=== PATIENT | female | born 1945 | race Caucasian/White ===

== ENCOUNTER 2017-10-14 15:23 | Outpatient (CLI) | payer MEDICARE, OTHER ==
--- NOTE | 2017-10-15 09:10 | MRI ---
MRI OF THE RIGHT SHOULDER WITHOUT CONTRAST: Indication: Right shoulder pain. Comparison: Right shoulder radiograph, 07-08-17. FINDINGS: There is full thickness, full width tear of the supraspinatus with retraction of the tendon to the le rachel of the superior humeral head. There is full thickness disruption of the biceps tendon with retraction to the level of the mid bicip ital groove. There are small focal areas of fullness articular cartilage thinning involving the posterior central glenoid with associated subchondral cyst-like abnormalities. There is moderate AC joint osteoarthrosis. There is a small benign appearing vascular malformation seen within the medial proximal humeral metap hysis measuring 1.2 cm. IMPRESSION: 1. Full thickness, full width tear of the supraspinatus with retraction to the level of the superior humeral head. 2. Complete long head of the biceps tendon disruption with retraction to the level of the mid bicipit al groove. 3. Moderate to severe chondrosis of the posterior central glenoid arterial surface. 4. Moderate AC joint osteoarthrosis. 5. Small benign appearing vascular malformation of the proximal humeral metaphysis without significan t bone remodeling or bone destruction. POS: [facility]
== END 2017-10-14 15:24 | disposition home or self-care (01) ==
LOC: MRI 15:23
PROVIDERS: ATTEND Orthopaedic Surgery
DX: M25.511 Pain in right shoulder (principal); M75.101 Unspecified rotator cuff tear or rupture of right shoulder, not specified as traumatic; M19.011 Primary osteoarthritis, right shoulder; M75.91 Shoulder lesion, unspecified, right shoulder

== ENCOUNTER 2018-06-05 12:08 | Outpatient (CLI) | payer MEDICARE, OTHER ==
--- NOTE | 2018-06-05 14:42 | BD ---
DEXA BONE MINERAL DENSITY STUDY: HISTORY: Osteoporosis screening. Postmenopausal female. COMPARISON: None. FINDINGS: Exam: DEXA Bone Density Lumbar Spine: BMD (g/cm2) L1 1.320 T-Score: 3.0 5.1 L2 1.166 T-Score: 1.3 2.6 L3 1.245 T-Score: 1.5 3.9 L4 1.054 T-Score: -0.1 2.5 L1-L4 1.210 T-Score: 1.5 3.8 WHO classification is normal. Femoral Neck: 0.803 T-Score: -0.4 -1.6 Total Femur: 0.806 T-Score: -1.1 0.6 WHO classification osteopenia. 10-YEAR FRACTURE RISK: Major osteoporotic fracture is 7.5%. Hip fracture 0.9. Impression: 1. Osteopenia left hip. 2. Spuriously elevated bone mineral density of the lumbar spine due to degenerative changes. POS: SUSIE
== END 2018-06-05 12:09 | disposition home or self-care (01) ==
LOC: BICMAMMO 12:08
PROVIDERS: ATTEND Internal Medicine
DX: Z13.820 Encounter for screening for osteoporosis (principal); M85.852 Other specified disorders of bone density and structure, left thigh; Z78.0 Asymptomatic menopausal state; Z12.31 Encounter for screening mammogram for malignant neoplasm of breast
CPT/HCPCS: 77063; 77067; 77080

== ENCOUNTER 2018-07-16 13:45 | Outpatient (CLI) | payer MEDICARE, OTHER ==
--- NOTE | 2018-07-16 16:36 | RAD ---
LUMBAR SPINE FOUR VIEWS: 07/16/18 HISTORY: Lumbar spondylosis. Back pain. FINDINGS: Multilevel degenerative changes seen with dextroscoliosis of the lumbar spine. No fracture, subluxati on or bony destruction seen. No change in alignment is noted on flexion or extension. IMPRESSION: Lumbar spondylosis and dextroscoliosis. POS: SUSIE
== END 2018-07-16 13:46 | disposition home or self-care (01) ==
LOC: BICMAMMO 13:45
PROVIDERS: ATTEND Internal Medicine
DX: M47.816 Spondylosis without myelopathy or radiculopathy, lumbar region (principal); R92.2 Inconclusive mammogram; M41.9 Scoliosis, unspecified
CPT/HCPCS: 72110; 77065; G0279

== ENCOUNTER 2018-08-13 13:37 | Outpatient (CLI) | payer MEDICARE, OTHER ==
--- NOTE | 2018-08-13 14:53 | MRI ---
MRI LUMBAR SPINE WITHOUT CONTRAST: Date: 08/13/18 COMPARISON: None. CORRELATION: Lumbar spine radiograph series dated 07/16/18. HISTORY: Lumbar spondylosis. Low back pain with radiation down both legs. TECHNIQUE: MRI lumbar spine is performed without intravenous Gadolinium administration. Multisequential, multipl ramesh imaging is performed. FINDINGS: There is marked dextrorotoscoliosis of the lumbar spine. There is appropriate T1 marrow signal intens ity of the majority of the lumbar vertebra. There is irregularity involving the inferior aspect of T1 2 and the superior aspect of L1. There is associated T1 marrow signal hypointensity, T2 and STIR subt le hyperintensity. Findings may represent subacute end plate injuries given what appears to be cirrho sis along the margin of the marrow signal abnormality. Correlate clinically. There is no significant collapse or loss of vertebral body height. The remainder of the lumbar vertebra have appropriate chuck ow signal intensity. Conus medullaris terminates at mid L1 level. There is appropriate signal intensity in the visualized solid organs. Symmetric signal intensity of t he psoas muscles. There is a large T2 hyperintensity in the right S2 neural foramen. The possibility of a large Tarlov cyst is raised, measuring 2.3 x 2.9 cm. T12-L1: Severe loss of disc space height. No high grade central canal stenosis. Moderate bilateral f oraminal narrowing. L1-L2: Moderate loss of disc space height. No significant central canal stenosis. Moderate bilateral neural foraminal narrowing. L2-L3: Moderate loss of disc space height. Generalized disc bulge, ligamentum flavum thickening, and facet hypertrophy result in mild central canal stenosis. Moderate bilateral foraminal narrowing. L3-L4: Desiccation with moderate loss of disc space height. Generalized disc bulge, ligamentum flavu m thickening, and facet hypertrophy result in mild central canal stenosis. Moderate to severe bilater al foraminal narrowing. L4-L5: Severe loss of disc space height. Generalized disc bulge, ligamentum flavum thickening, and f acet hypertrophy result in mild central canal stenosis. Moderate right and mild to moderate left fora donna narrowing. L5-S1: Severe loss of disc space height. Generalized disc bulge, ligamentum flavum thickening, and f acet hypertrophy do not result in any significant central canal stenosis. Moderate to severe right an d mild to moderate left foraminal narrowing. IMPRESSION: 1. Dextrorotatory scoliosis lumbar spine. There is associated multilevel significant neural foramina l narrowing as described above. 2. There is severe loss of disc space height throughout the lumbar spine. Nevertheless, there is no evidence of high grade central canal stenosis. POS: SUSIE
--- NOTE | 2018-08-13 15:39 | MRI ---
MR CERVICAL SPINE WITHOUT CONTRAST: 08/13/18 INDICATION: Cervical spondylosis. COMPARISON: None. FINDINGS: There is suspected ankylosis at C3-4 and C5-6. There is anterior translation of C3 on C4. The visuali zed posterior fossa is unremarkable appearing. Craniocervical junction appears within normal limits. At C2-C3, there is no appreciable central canal or neural foraminal narrowing. There is moderate to severe right and moderate left facet joint degen erative change. At C3-4, there is uncovertebral hypertrophy and facet joint degenerative change inducing mild right n eural foraminal narrowing. The anterolisthesis of C3 on C4 in addition to a mild broad based bulge in duces mild central canal narrowing without definite cord compression. At C4-5, there is a broad based bulge inducing mild effacement of the spinal cord without cord signal abnormality. There is severe left and moderate right facet joint degenerative change. There is no ap preciable neural foraminal narrowing. At C5-6, there is a broad based disc osteophyte complex effacing the ventral aspect of the spinal cor d with mild cord compression. There is no definite cord signal abnormality. There is no neural forami nal narrowing present. At C6-7, there is disc osteophyte complex causing mild ventral effacement of the spinal cord. There i s uncovertebral hypertrophy and facet joint degenerative change inducing moderate to severe left and mild right neural foraminal narrowing. At C7-T1, there is no appreciable central canal or neural foraminal narrowing. IMPRESSION: 1. Cord effacement seen at C4-5, C5-6 an d C6-7 without cord signal abnormality. 2. Moderate to severe left neural foraminal narrowing at C6-7. 3. Ankylosis at C3-4 and C5-6. 4. Anterolisthesis of C3-4 causes mild central canal narrowing without definite cord compression . POS: T[facility]
== END 2018-08-13 13:38 | disposition home or self-care (01) ==
LOC: BICMRI 13:37
PROVIDERS: ATTEND Anesthesiology Pain Medicine
DX: M47.816 Spondylosis without myelopathy or radiculopathy, lumbar region (principal); M47.812 Spondylosis without myelopathy or radiculopathy, cervical region; M43.22 Fusion of spine, cervical region; M43.12 Spondylolisthesis, cervical region; M48.02 Spinal stenosis, cervical region; M41.9 Scoliosis, unspecified; M48.061 Spinal stenosis, lumbar region without neurogenic claudication; M48.05 Spinal stenosis, thoracolumbar region; M48.07 Spinal stenosis, lumbosacral region
CPT/HCPCS: 72141; 72148

== ENCOUNTER 2019-07-30 15:21 | Observation (INO) | payer MEDICARE, OTHER ==
[2019-07-30] MEDS ORDERED: Iopamidol-370 76% 500 ML 1 ML ONE (15:43)
[2019-07-30 16:06] LABS: #Basophils 0.1 thou/uL (0.0-0.2); #Lymphocytes 0.9 thou/uL (1.20-3.40); #Monocytes 0.3 thou/uL (0.11-0.59); #Neutrophils 8.2 thou/uL (1.40-6.50); %Basophils 0.5 % (0.0-1.0); %Lymphocytes 9.2 % (21.0-51.0); %Monocytes 3.6 % (0.0-10.0); %Neutrophils 86.6 % (42.0-75.0); Hemoglobin 8.7 g/dL (12.0-16.0); Mean Corpuscular HGB CONC 34.5 g/dL (32.0-36.0); Mean Corpuscular Hemoglobin 33.4 pg (27.0-31.0); Mean Platelet Volume 8.5 fL (7.4-10.4); Platelet Count 331 thou/uL (130-400); Red Blood Cell (RBC) Count 2.59 mill/uL (4.20-5.40); White Blood Cell (WBC) Count 9.5 thou/uL (4.8-10.8)
[2019-07-30 16:26] LABS: ALT (SGPT) 8 U/L (8-55); AST (SGOT) 12 U/L (5-34); Albumin 3.8 g/dL (3.4-4.8); Alkaline Phosphatase 69 U/L (40-110); Anion Gap 13 mmol/L (10-20); BUN (Urea Nitrogen) 72 mg/dL (9.8-20.1); Bilirubin, Total 0.2 mg/dL (0.2-1.2); Calc. Creatinine Clearance 0 mL/min (70-130); Calcium 8.5 mg/dL (7.8-10.44); Carbon Dioxide 21 mmol/L (23-31); Chloride 108 mmol/L (98-107); Estimated GFR-MDRD 51; Globulin 1.9 g/dL (2.4-3.5); Glucose 166 mg/dL (83-110); Lipase 12 U/L (8-78); Potassium 4.1 mmol/L (3.5-5.1); Protein, Total 5.7 g/dL (6.0-8.3); Sodium 138 mmol/L (136-145)
[2019-07-30] MEDS ORDERED: Ondansetron PF 4 MG/2 ML Vial ONE (16:27)
[2019-07-30] MEDS ORDERED: Morphine 4 MG/ML VIAL ONE (16:27)
[2019-07-30 17:07] LABS: Bilirubin Negative (Negative); Blood, Urine Negative (Negative); Clarity Clear (Clear); Glucose, Urine (Dipstick) Normal (Negative); Leukocyte Negative Leu/uL (Negative); Nitrite Negative (Negative); Protein, Urine (Dipstick) 10 mg/dL (Neg-Trace); Urobilinogen Normal mg/dL (Less than 2)
--- NOTE | 2019-07-30 17:29 | CT ---
CT OF ABDOMEN AND PELVIS PERFORMED WITH CONTRAST ENHANCEMENT: 07/30/19 HISTORY: Abdominal pain x2 days. COMPARISON: 09/03/17 study. The lung bases are clear. The liver, spleen, and pancreas regions are unremarkable. There is postop cholecystectomy changes see n. There is mild dilatation to the biliary system which is probably on the basis of the cholecystecto my. Right and left adrenal glands and right and left kidneys are normal in size. There is no significant periaortic or mesenteric adenopathy. CT OF PELVIS PERFORMED WITH CONTRAST ENHANCEMENT: There is no adenopathy, mass or free fluid. The appendix was difficult to definitely identify but I s ee no inflammatory change. No free fluid in the pelvis. No pelvic lymphadenopathy or mass. There are marked scoliotic changes and arthritic changes of the spine. The bones appear demineralized . IMPRESSION: No acute findings of the abdomen or pelvis. POS: SUSIE
[2019-07-30] MEDS ORDERED: Labetalol HCl 100 MG/20 ML VIAL ONE (17:41)
[2019-07-30] MEDS ORDERED: Pantoprazole 40 MG VIAL ONE (18:34)
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
[2019-07-30] MEDS ORDERED: Labetalol HCl 100 MG/20 ML VIAL SLOW IVP PRN (21:08)
[2019-07-30] MEDS ORDERED: hydrALAZINE 20 MG/ML VIAL SLOW IVP PRN (21:08)
[2019-07-30] MEDS ORDERED: Amlodipine 10 MG TAB PO SCH (21:15)
[2019-07-30 22:11] VITALS: BMI 18.7
[2019-07-30] MEDS ORDERED: Ondansetron PF 4 MG/2 ML Vial IVP PRN (22:30)
[2019-07-30] MEDS ORDERED: Acetaminophen 325 MG TAB PO PRN (22:30)
[2019-07-30] MEDS ORDERED: Sodium Chloride 0.9% (PF) 10 ML VIAL FS PRN (22:34)
[2019-07-31] MEDS ORDERED: Lorazepam 0.5 MG TAB PO SCH (01:00)
[2019-07-31] MEDS ORDERED: rOPINIRole HCl 0.5 MG TAB PO SCH ×2 (01:00→21:00)
[2019-07-31] MEDS: Lactated Ringer's 1,000 ML IV SCH ×3 (01:12→11:38)
[2019-07-31 02:04] LABS: #Basophils 0.1 thou/uL (0.0-0.2); #Lymphocytes 1.9 thou/uL (1.20-3.40); #Monocytes 0.4 thou/uL (0.11-0.59); #Neutrophils 2.8 thou/uL (1.40-6.50); %Basophils 1.1 % (0.0-1.0); %Eosinophils 0.7 % (0.0-10.0); %Lymphocytes 36.3 % (21.0-51.0); %Monocytes 8.1 % (0.0-10.0); %Neutrophils 53.8 % (42.0-75.0); Mean Corpuscular HGB CONC 34.5 g/dL (32.0-36.0); Mean Corpuscular Hemoglobin 33.4 pg (27.0-31.0); Mean Platelet Volume 8.5 fL (7.4-10.4); Platelet Count 207 thou/uL (130-400); Platelet Morphology Comment Appears Adequate; White Blood Cell (WBC) Count 5.4 thou/uL (4.8-10.8)
[2019-07-31 06:58] LABS: #Eosinphils 0.1 thou/uL (0.0-0.7); #Lymphocytes 1.4 thou/uL (1.20-3.40); #Monocytes 0.3 thou/uL (0.11-0.59); %Basophils 1.3 % (0.0-1.0); %Eosinophils 1.8 % (0.0-10.0); %Lymphocytes 37.8 % (21.0-51.0); %Monocytes 7.9 % (0.0-10.0); %Neutrophils 51.2 % (42.0-75.0); Hemoglobin 6.1 g/dL (12.0-16.0); Mean Corpuscular HGB CONC 34.6 g/dL (32.0-36.0); Mean Corpuscular Hemoglobin 33.8 pg (27.0-31.0); Mean Corpuscular Volume 97.9 fL (78.0-98.0); Platelet Count 185 thou/uL (130-400); White Blood Cell (WBC) Count 3.8 thou/uL (4.8-10.8)
[2019-07-31 07:16] LABS: ALT (SGPT) 7 U/L (8-55); AST (SGOT) 13 U/L (5-34); Albumin 3.2 g/dL (3.4-4.8); Alkaline Phosphatase 52 U/L (40-110); Anion Gap 9 mmol/L (10-20); BUN (Urea Nitrogen) 45 mg/dL (9.8-20.1); Bilirubin, Total Less than 0.2 mg/dL (0.2-1.2); Calc. Creatinine Clearance 46 mL/min (70-130); Calcium 8.1 mg/dL (7.8-10.44); Carbon Dioxide 24 mmol/L (23-31); Chloride 109 mmol/L (98-107); Estimated GFR-MDRD 67; Globulin 1.5 g/dL (2.4-3.5); Glucose 107 mg/dL (83-110); Iron 62 ug/dL (50-170); Iron Binding Capacity, Total 243 mcg/dL (265-497); Potassium 3.8 mmol/L (3.5-5.1); Protein, Total 4.7 g/dL (6.0-8.3); Sodium 138 mmol/L (136-145); Transferrin, Serum 194 mg/dL (173-360)
[2019-07-31 07:31] LABS: Hemoglobin 6.1 g/dL (12.0-16.0)
[2019-07-31] MEDS: cloNIDine 0.1 MG TAB PO SCH ×2 (07:42→20:27)
[2019-07-31] MEDS: FLUoxetine HCl 20 MG CAP PO SCH (07:43)
[2019-07-31] MEDS: Pantoprazole 40 MG VIAL IVP SCH ×2 (07:43→20:19)
[2019-07-31] MEDS: Amlodipine 10 MG TAB PO SCH (07:43)
[2019-07-31] MEDS: Lorazepam 0.5 MG TAB PO SCH ×2 (07:43→20:19)
--- NOTE | 2019-07-31 09:22 | PDOC.FM ---
- Subjective Subjective: pt resting comfortably in bed, denies sob, reports dizziness - Objective Vital Signs & Weight: Vital Signs (12 hours) Temp Pulse Resp BP BP Pulse Ox 07/31/19 07:27 98.2 F 88 18 139/55 L 96 07/31/19 05:31 98.2 F 86 16 143/60 H 95 07/31/19 00:00 98.5 F 82 16 128/62 96 07/30/19 22:09 98.2 F 81 18 142/62 H 96 07/30/19 22:05 83 142/62 H 07/30/19 22:00 98.2 F 82 18 166/69 H 97 Weight Weight 49.5 kg I&O: 07/30/19 07/31/19 08/01/19 06:59 06:59 06:59 Intake Total 1230 Output Total 400 Balance 830 Result Diagrams: 07/31/19 07:18 07/31/19 06:48 Phys Exam - Physical Examination Constitutional: NAD pale Neck: no JVD Respiratory: clear to auscultation bilateral Cardiovascular: RRR, no significant murmur Gastrointestinal: soft, non-tender Musculoskeletal: no edema Neurological: moves all 4 limbs Psychiatric: normal affect Skin: no rash Dx/Plan (1) Anemia Code(s): D64.9 - ANEMIA, UNSPECIFIED Status: Acute (2) GI bleed Code(s): K92.2 - GASTROINTESTINAL HEMORRHAGE, UNSPECIFIED Status: Acute (3) Pancreatic insufficiency Code(s): K86.89 - OTHER SPECIFIED DISEASES OF PANCREAS Status: Acute - Plan Plan: Blood Loss Anemia 2/2 GI bleed - Hgb 8.7->6; positive fecal occult. Previous normal colonoscopy in 2014. - CT no acute abnormalities of abdomen. - trend h/h - GI consult, appreciate recs - monitor for acute decompensation but currently hemodynamically stable. blood product reaction - 2 episodes in past, requires washed blood - [place] prbc HTN - continue home meds Restless Leg - continue home meds Hx of pancreatic insufficiency - no intervention Fluids: LR 90 mls/hr Diet: NPO VTE: none for bleed Code: full Dispo:eval and treat gi bleed today
[2019-07-31] MEDS ORDERED: PROPOFOL 200 MG/20 ML VIAL ONE (10:22)
--- NOTE | 2019-07-31 11:58 | PRG ---
DATE OF SERVICE: 07/31/2019 I have examined the patient and discussed the case with Dr. Cruz Hernandez. I agree with his assessment and plan. Job ID: [id number]
[2019-07-31] MEDS ORDERED: Ketamine 50 MG/ML (10ML VIAL) ONE (13:46)
[2019-07-31 14:11] LABS: Hemoglobin 5.7 g/dL (12.0-16.0)
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
--- NOTE | 2019-07-31 20:28 | OP ---
DATE OF PROCEDURE: 07/31/2019 PROCEDURE: Esophagogastroduodenoscopy (diagnostic). INDICATION FOR PROCEDURE: Melena, anemia. DESCRIPTION OF PROCEDURE: After the risks and benefits of the procedure were explained to the patient including risks of bleeding, infection, perforation, reactions to anesthesia, aspiration and/or pain, informed consent was obtained. The patient was then taken to the endoscopy suite, where she was maneuvered into the left lateral decubitus position, followed by introduction of deep sedation via propofol and anesthesia support. Once adequate sedation was achieved, the standard gastroscope was introduced into the mouth with intubation of the esophagus, stomach, and the proximal small intestines with the findings listed below. The patient tolerated the procedure well with no immediate perioperative complications. Upon conclusion of the procedure, all equipment was removed from the patient and she was transferred to PACU in satisfactory condition. FINDINGS: Esophagus: Normal-appearing mucosa was seen in the proximal, mid, and distal esophagus. There was no evidence of erosions, ulcerations, mass, lesions, or active/recent bleeding. Stomach: Normal-appearing mucosa was seen in the gastric cardia, fundus, body, greater curvature, and incisura. However, a 3 to 4 mm cratered clean-based ulceration was seen in the gastric antrum in the pre-pyloric region. It did not display any evidence of active or recent bleeding nor did it display any high-risk stigmata of bleeding. No intervention was taken of this ulceration given the low likelihood of rebleeding and the lack of blood product given the patient thus far. Otherwise, there was no evidence of mass or lesions within the stomach. Duodenum: Normal-appearing mucosa was seen in both the duodenal bulb and second portion of the duodenum. There was no evidence of erosions, ulcerations, mass, lesions, or active/recent bleeding. IMPRESSION: 1. 3 to 4 mm cratered clean-based ulcerations seen in the gastric antrum without high-risk stigmata of bleeding (most likely a reason for the patient's recent melena). 2. Otherwise normal upper endoscopy. RECOMMENDATIONS: 1. Would continue to trend the patient's H and H and transfuse as necessary to maintain an H and H of 7/21. 2. Continue to monitor clinically for signs of active GI bleeding. 3. Would continue pantoprazole 40 mg b.i.d. IV. 4. Would administer blood product as soon as it becomes available given the patient's special requirements. 5. If the patient does not display any further episodes of melena nor any decrease in her H and H over the next 24 hours, she could be potentially discharged to home and follow up in the outpatient GI clinic. 6. Would avoid any NSAIDs during this hospitalization as this is the most likely reason for her ulcer formation. We will continue to follow. Please call with any questions. Job ID: [id number]
[2019-08-01] MEDS: Lactated Ringer's 1,000 ML IV SCH (01:30)
[2019-08-01 04:45] LABS: #Eosinphils 0.1 thou/uL (0.0-0.7); #Lymphocytes 1.4 thou/uL (1.20-3.40); #Monocytes 0.3 thou/uL (0.11-0.59); #Neutrophils 3.1 thou/uL (1.40-6.50); %Basophils 0.7 % (0.0-1.0); %Eosinophils 2.4 % (0.0-10.0); %Lymphocytes 28.6 % (21.0-51.0); %Monocytes 5.3 % (0.0-10.0); Hemoglobin 8.5 g/dL (12.0-16.0); Mean Corpuscular HGB CONC 34.2 g/dL (32.0-36.0); Mean Corpuscular Hemoglobin 32.5 pg (27.0-31.0); Mean Corpuscular Volume 94.9 fL (78.0-98.0); Mean Platelet Volume 8.4 fL (7.4-10.4); Platelet Count 160 thou/uL (130-400); RBC Distribution Width 12.1 % (11.5-14.5); Red Blood Cell (RBC) Count 2.61 mill/uL (4.20-5.40)
[2019-08-01 05:14] LABS: ALT (SGPT) 8 U/L (8-55); AST (SGOT) 19 U/L (5-34); Albumin 3.1 g/dL (3.4-4.8); Alkaline Phosphatase 56 U/L (40-110); Anion Gap 10 mmol/L (10-20); BUN (Urea Nitrogen) 17 mg/dL (9.8-20.1); Bilirubin, Total 0.6 mg/dL (0.2-1.2); Calc. Creatinine Clearance 53 mL/min (70-130); Calcium 8.1 mg/dL (7.8-10.44); Carbon Dioxide 25 mmol/L (23-31); Chloride 108 mmol/L (98-107); Estimated GFR-MDRD 79; Globulin 1.6 g/dL (2.4-3.5); Glucose 94 mg/dL (83-110); Potassium 4.2 mmol/L (3.5-5.1); Protein, Total 4.7 g/dL (6.0-8.3); Sodium 139 mmol/L (136-145)
--- NOTE | 2019-08-01 07:11 | PDOC.FM ---
- Subjective Subjective: pt resting comfortably in bed, denies ongoing melena or dizziness - Objective Vital Signs & Weight: Vital Signs (12 hours) Temp Pulse Resp BP Pulse Ox 08/01/19 04:00 98.2 F 79 18 141/60 H 94 L 07/31/19 20:03 98.3 F 80 18 124/56 L 94 L Weight Admit Weight 49.442 kg Weight 49.5 kg I&O: 07/31/19 08/01/19 08/02/19 06:59 06:59 06:59 Intake Total 1230 3940 Output Total 400 1350 Balance 830 2590 Result Diagrams: 08/01/19 04:25 08/01/19 04:25 Phys Exam - Physical Examination Constitutional: NAD HEENT: moist MMs Neck: no JVD Respiratory: clear to auscultation bilateral Cardiovascular: no significant murmur Gastrointestinal: non-tender, no distention Musculoskeletal: no edema Neurological: moves all 4 limbs Psychiatric: normal affect Dx/Plan (1) Anemia Code(s): D64.9 - ANEMIA, UNSPECIFIED Status: Acute (2) GI bleed Code(s): K92.2 - GASTROINTESTINAL HEMORRHAGE, UNSPECIFIED Status: Acute (3) Pancreatic insufficiency Code(s): K86.89 - OTHER SPECIFIED DISEASES OF PANCREAS Status: Acute - Plan Plan: Blood Loss Anemia 2/2 GI bleed - Hgb 8.7->6; positive fecal occult. Previous normal colonoscopy in 2014. - CT no acute abnormalities of abdomen. - trend h/h, hb stable - GI consult, appreciate recs - EGD reveals gastric ulcers, continue protonix blood product reaction - 2 episodes in past, requires washed blood - s/p 2u HTN - hold clonidine 2/2 hypotension Restless Leg - continue home meds Hx of pancreatic insufficiency - no intervention Code: full Dispo:dc later today with stable hb
[2019-08-01] MEDS: Lorazepam 0.5 MG TAB PO SCH (08:11)
[2019-08-01] MEDS: Pantoprazole 40 MG VIAL IVP SCH (08:11)
[2019-08-01] MEDS: Amlodipine 10 MG TAB PO SCH (08:12)
[2019-08-01] MEDS: FLUoxetine HCl 20 MG CAP PO SCH (08:12)
--- NOTE | 2019-08-01 11:04 | PRG ---
DATE OF SERVICE: 08/01/2019 I have examined the patient. I have discussed her care with Dr. Cruz Hernandez and agree with his assessment and plan. Job ID: [id number]
[2019-08-01 16:20] VITALS: BP 144/61; TEMP 98
--- NOTE | 2019-08-02 14:31 | DIS ---
DATE OF ADMISSION: 07/30/2019 DATE OF DISCHARGE: 08/01/2019 DISCHARGE ATTENDING: Dr. Eric Cordon. CONSULTS: Gastroenterology, Dr. Rangel. IMAGING STUDIES: Abdomen and pelvis CT, no acute findings in the abdomen or pelvis. PROCEDURES: EGD performed by Dr. Harley Rangel revealed multiple gastric ulcers. Biopsies were taken. MEDICATIONS: Discharge medications; 1. Prozac 40 mg p.o. daily. 2. Ativan 0.5 mg p.o. b.i.d. 3. Ropinirole 0.5 mg p.o. q.p.m. 4. Amlodipine 10 mg p.o. daily. 5. Protonix 40 mg p.o. b.i.d. Discontinued medications; 1. Aspirin 81 mg daily. 2. Plavix 75 mg p.o. daily. 3. Clonidine 0.1 mg p.o. b.i.d. DISCHARGE DIAGNOSIS: Blood loss anemia secondary to GI bleed. SECONDARY DIAGNOSES: 1. Blood product reaction. 2. Hypertension. 3. Restless legs. 4. History of pancreatic insufficiency. HISTORY OF PRESENT ILLNESS/HOSPITAL COURSE: Ms. Sinai Moreira is a 74-year-old female with past medical history significant for pancreatic insufficiency and hypertension and right shoulder pain, presenting with weakness for 7 days. She endorses a several day history of dark stools. At the time of admission, she was not having any dizziness, shortness of breath or vital sign instability. In the emergency room, she had a positive fecal occult blood. Her hemoglobin was 8.7. She was started on Protonix at that time. The following day, GI was consulted and it was determined that the patient was appropriate for an EGD. The patient's hemoglobin was monitored and continued to drop to below 7. The patient became symptomatic around that time. In the past, the patient has had a 2 severe reactions to blood products resulting in ICU stay. She has been told that she can only accept washed a positive blood, and so this was obtained from [facility] at that time, the patient was transfused 2 units and hemoglobin remained stable through her hospitalization. EGD completed, which showed gastric ulcers. The patient was started on Protonix orally and discharged to home on this. NSAIDs were held. The patient was instructed not to take NSAIDs as an outpatient, this is likely what caused her bleed. DISCHARGE INSTRUCTIONS: 1. Location: Home. 2. Diet: Heart healthy. 3. Activity: As tolerated. 4. Followup: Follow up with PCP, Dr. Cantu next 3 to 7 days. Job ID: [id number]
[2019-08-02 16:08] LABS: Folate,Hemolysate 301.7 ng/mL (Not Estab.); Hematocrit 18.2 % (34.0-46.6); RBC Folate Test Component 1658 ng/mL (>498)
== END 2019-08-01 15:15 | disposition home or self-care (01) ==
LOC: ERS 15:21 → T4-A 18:27
PROVIDERS: ADMIT Emergency Medicine; ATTEND Emergency Medicine
PROC: 0DJ08ZZ Inspection of Upper Intestinal Tract, Via Natural or Artificial Opening Endoscopic (ICD-10-PCS; principal; 2019-07-31)
DX: K25.4 Chronic or unspecified gastric ulcer with hemorrhage (principal); D50.0 Iron deficiency anemia secondary to blood loss (chronic); I10 Essential (primary) hypertension; G25.81 Restless legs syndrome; K86.89 Other specified diseases of pancreas; M19.90 Unspecified osteoarthritis, unspecified site; E86.0 Dehydration; G89.29 Other chronic pain; M54.2 Cervicalgia; Z79.02 Long term (current) use of antithrombotics/antiplatelets; Z79.82 Long term (current) use of aspirin; Z79.899 Other long term (current) drug therapy; Z98.890 Other specified postprocedural states
CPT/HCPCS: 36430; 43235; 51701; 74177; 80053 ×3; 81003; 82274; 82607; 82747; 82784; 83540; 83690; 85014 ×2; 85018 ×2; 85025 ×4; 86850; 86900; 86901; 86920; 93005; 96361 ×3; 96374; 96375 ×2; 96376 ×2; 99285; G0378 ×4; P9022; 36415; 83550; 84466; A4353; C9113; J2270; J2405; J2704; Q9967